=== PATIENT | male | born 2000 | race Caucasian/White ===

== ENCOUNTER 2022-01-25 10:02 | Emergency (ER) | payer OTHER ==
[~2022-01-25] VITALS: Ht 190.5 cm; Wt 109.3 kg
[2022-01-25] MEDS ORDERED: IVER1TAB PO ×2 (13:04→13:05)
[2022-01-25 13:07] VITALS: BP 132/83
== END 2022-01-25 13:37 | disposition home or self-care (01) ==
LOC: M ED 10:02
DX: B86 Scabies (principal); Z87.891 Personal history of nicotine dependence; Z88.0 Allergy status to penicillin